=== PATIENT | female | born 1965 | race Two or more races ===

== ENCOUNTER 2019-04-26 14:18 | Emergency (ER) | payer OTHER ==
[~2019-04-26] VITALS: Ht 182.9 cm; Wt 83.9 kg
[2019-04-26] MEDS ORDERED: LISINOPRIL5 MG (15:12)
[2019-04-26] MEDS ORDERED: DICLOFENAC SODI75 MG PO (16:41)
== END 2019-04-26 17:20 | disposition home or self-care (01) ==
LOC: ER 14:18
DX: M25.562 Pain in left knee (principal)

== ENCOUNTER 2023-07-11 07:48 | Outpatient (CLI) | payer OTHER ==
[~2023-07-11 07:48] MED LIST: DICLOFENAC SODI75 MG PO; LISINOPRIL5 MG
== END 2023-07-11 07:52 | disposition home or self-care (01) ==
LOC: RAD 07:48 → MRI 07:48 → RAD 07:52
DX: M54.51 Vertebrogenic low back pain (principal); M54.50 Low back pain, unspecified; M25.562 Pain in left knee; M54.6 Pain in thoracic spine; M54.2 Cervicalgia
CPT/HCPCS: 72141; 72148; 73718

== ENCOUNTER 2023-08-27 10:33 | Outpatient (CLI) | payer OTHER | END 2023-08-27 10:41 | disposition home or self-care (01) | LOC: RAD 10:33 | PROVIDERS: ATTEND Family Medicine | DX: M25.512 Pain in left shoulder (principal); M25.511 Pain in right shoulder ==

== ENCOUNTER 2023-09-16 08:32 | Outpatient (CLI) | payer OTHER | END 2023-09-16 08:38 | disposition home or self-care (01) | LOC: RAD 08:32 | PROVIDERS: ATTEND Physical Medicine & Rehabilitation | DX: M17.12 Unilateral primary osteoarthritis, left knee (principal); M22.41 Chondromalacia patellae, right knee; M22.42 Chondromalacia patellae, left knee ==

== ENCOUNTER 2023-10-28 10:32 | Outpatient (CLI) | payer OTHER | END 2023-10-28 10:38 | disposition home or self-care (01) | LOC: RAD 10:32 | PROVIDERS: ATTEND Physical Medicine & Rehabilitation | DX: M77.31 Calcaneal spur, right foot (principal); M77.32 Calcaneal spur, left foot ==

== ENCOUNTER 2023-11-15 14:03 | Outpatient (CLI) | payer OTHER | END 2023-11-15 14:12 | disposition home or self-care (01) | LOC: EDSEX 14:03 → SONOGRAMA 14:03 | PROVIDERS: ATTEND Internal Medicine Hematology & Oncology | DX: D63.8 Anemia in other chronic diseases classified elsewhere (principal); D51.3 Other dietary vitamin B12 deficiency anemia; I10 Essential (primary) hypertension; E78.2 Mixed hyperlipidemia ==

== ENCOUNTER 2023-11-19 08:34 | Outpatient (CLI) | payer OTHER ==
[2023-11-19 09:31] LABS: HEMATOCRIT 38.8 % (39.0-48.0); HEMOGLOBIN 13.2 g/dL (13-16.00); MEAN CELL VOLUME 89.6 fL (80.0-100.00); MEAN CORPUSCULAR HEMOGLOBIN 30.4 pg (27.00-32.0); MEAN CORPUSCULAR HGB CONC 33.9 g/dl (32.0-36.0); PLATELET COUNT 201 K/uL (150-450); RED BLOOD COUNT 4.33 M/uL (4.00-6.00); RED CELL DISTRIBUTION WIDTH 14.1 % (11.5-14.5)
[2023-11-19 10:08] LABS: % SATURACION 27.2 % (20-50); ALBUMIN 4.2 gm/dL (3.4-5.0); BILIRUBIN TOTAL 0.64 mg/dL (0.3-1.2); CALCIUM 9.7 mg/dL (8.5-10.1); CREATININE SERUM 1.28 mg/dL (0.70-1.30); GFR 57.92; GLOBULINA 3.3 G/DL (2.4-3.5); POTASSIUM 3.88 mEq/L (3.5-5.1); T4 FREE 0.92 NG/ML (0.76-1.46); TOTAL PROTEIN 7.5 gm/dL (6.4-8.2); TSH 1.62 uIU/mL (0.358-3.74)
[2023-11-19 10:54] LABS: MANUAL PLATELET COUNT 224; PLATELET ESTIMATE NORMAL (NORMAL)
[2023-11-19 12:20] LABS: FOLIC ACID > 20.00 ng/ml (4.78-20); VITAMIN D3 25 HYDROXY 40.19 ng/ml (30-120)
[2023-11-20 11:12] LABS: ESTRADIOL SERUM 42.9 pg/mL (7.6-42.6)
[2023-11-20 13:07] LABS: hgb a 97.3 % (96.4-98.8); hgb a2 2.7 % (1.8-3.2); hgb f 0 % (0.0-2.0); hgb s 0 % (0.0)
[2023-11-21 20:43] LABS: PARIETAL CELL ANTIBODIES 1.5 Units (0.0-20.0); g6pd quant 250 (127-427); rbc 4.24 x10E6/uL (4.14-5.80)
== END 2023-11-19 08:35 | disposition home or self-care (01) ==
LOC: LAB 08:34
PROVIDERS: ATTEND Internal Medicine Hematology & Oncology
DX: D50.8 Other iron deficiency anemias (principal); R79.9 Abnormal finding of blood chemistry, unspecified; I10 Essential (primary) hypertension; R74.02 Elevation of levels of lactic acid dehydrogenase [LDH]; K76.89 Other specified diseases of liver; D63.8 Anemia in other chronic diseases classified elsewhere; D55.0 Anemia due to glucose-6-phosphate dehydrogenase [G6PD] deficiency; E55.9 Vitamin D deficiency, unspecified; D51.1 Vitamin B12 deficiency anemia due to selective vitamin B12 malabsorption with proteinuria; D51.0 Vitamin B12 deficiency anemia due to intrinsic factor deficiency; D63.1 Anemia in chronic kidney disease; E03.8 Other specified hypothyroidism; E06.3 Autoimmune thyroiditis; D51.3 Other dietary vitamin B12 deficiency anemia

== ENCOUNTER → 2024-05-15 08:08 | Outpatient (CLI) | payer OTHER ==
[2024-05-15 08:33] LABS: HEMATOCRIT 41.8 % (39.0-48.0); HEMOGLOBIN 14.5 g/dL (13-16.00); MEAN CELL VOLUME 89.5 fL (80.0-100.00); MEAN CORPUSCULAR HGB CONC 34.6 g/dl (32.0-36.0); PLATELET COUNT 233 K/uL (150-450); RED BLOOD COUNT 4.67 M/uL (4.00-6.00); RED CELL DISTRIBUTION WIDTH 14.2 % (11.5-14.5)
[2024-05-15 09:49] LABS: ALBUMIN 3.9 gm/dL (3.4-5.0); BILIRUBIN TOTAL 1.16 mg/dL (0.3-1.2); CHOL HDL RATIO 2.8 (0-5.0); CREATININE SERUM 1.34 mg/dL (0.70-1.30); GFR 54.75; GLOBULINA 3.2 G/DL (2.4-3.5); POTASSIUM 3.73 mEq/L (3.5-5.1); TOTAL PROTEIN 7.1 gm/dL (6.4-8.2); TSH 2.06 uIU/mL (0.358-3.74)
[2024-05-16 09:07] LABS: ESTRADIOL SERUM 82.2 pg/mL (7.6-42.6); LEUTEINIZING HORMONE < 0.3 mIU/mL (1.7-8.6); PROLACTIN 16.9 ng/mL (3.6-25.2)
== END | disposition home or self-care (01) ==
LOC: LAB 08:08
PROVIDERS: ATTEND Urology
DX: E29.1 Testicular hypofunction (principal); G47.30 Sleep apnea, unspecified; N52.02 Corporo-venous occlusive erectile dysfunction; Z12.5 Encounter for screening for malignant neoplasm of prostate; I10 Essential (primary) hypertension

== ENCOUNTER 2024-06-11 07:20 | Outpatient (CLI) | payer OTHER | END 2024-06-11 07:26 | disposition home or self-care (01) | LOC: MRI 07:20 | DX: S93.402A Sprain of unspecified ligament of left ankle, initial encounter (principal) | CPT/HCPCS: 73721 ==

== ENCOUNTER 2024-10-01 09:09 | Outpatient (CLI) | payer OTHER ==
[2024-10-01 09:50] LABS: HEMATOCRIT 37.7 % (39.0-48.0); HEMOGLOBIN 13.3 g/dL (13-16.00); MEAN CELL VOLUME 89.3 fL (80.0-100.00); MEAN CORPUSCULAR HEMOGLOBIN 31.4 pg (27.00-32.0); MEAN CORPUSCULAR HGB CONC 35.2 g/dl (32.0-36.0); PLATELET COUNT 197 K/uL (150-450); RED BLOOD COUNT 4.22 M/uL (4.00-6.00); RED CELL DISTRIBUTION WIDTH 14.5 % (11.5-14.5)
[2024-10-01 10:27] LABS: % SATURACION 36.3 % (20-50); BILIRUBIN TOTAL 0.82 mg/dL (0.3-1.2); CALCIUM 9.4 mg/dL (8.5-10.1); CREATININE SERUM 1.31 mg/dL (0.70-1.30); FERRITIN 104.4 NG/ML (26-388); GFR 56.2; GLOBULINA 3.1 G/DL (2.4-3.5); POTASSIUM 3.98 mEq/L (3.5-5.1); TOTAL PROTEIN 7.1 gm/dL (6.4-8.2)
[2024-10-01 13:07] LABS: FOLIC ACID > 20.00 ng/ml (4.78-20)
[2024-10-01 14:00] LABS: MANUAL PLATELET COUNT 334
[2024-10-01 14:01] LABS: PLATELET ESTIMATE NORMAL (NORMAL)
== END 2024-10-01 09:10 | disposition home or self-care (01) ==
LOC: LAB 09:09
PROVIDERS: ATTEND Internal Medicine Hematology & Oncology
DX: D50.8 Other iron deficiency anemias (principal); R79.9 Abnormal finding of blood chemistry, unspecified; I10 Essential (primary) hypertension; R74.02 Elevation of levels of lactic acid dehydrogenase [LDH]; K76.89 Other specified diseases of liver; D58.2 Other hemoglobinopathies; D63.8 Anemia in other chronic diseases classified elsewhere; D51.3 Other dietary vitamin B12 deficiency anemia; E78.2 Mixed hyperlipidemia

== ENCOUNTER → 2024-12-01 08:00 | Outpatient (CLI) | payer OTHER | END | disposition home or self-care (01) | LOC: LAB 08:00 | DX: E29.1 Testicular hypofunction (principal); Z98.52 Vasectomy status; Z12.5 Encounter for screening for malignant neoplasm of prostate; G47.30 Sleep apnea, unspecified; N52.02 Corporo-venous occlusive erectile dysfunction ==

== ENCOUNTER 2024-12-30 08:45 | Outpatient (CLI) | payer OTHER | END 2024-12-30 08:50 | disposition home or self-care (01) | LOC: MRI 08:45 | DX: M54.50 Low back pain, unspecified (principal); M54.16 Radiculopathy, lumbar region; M54.59 Other low back pain | CPT/HCPCS: 72148 ==

== ENCOUNTER 2025-01-06 13:46 | Outpatient (CLI) | payer OTHER | END 2025-01-06 13:50 | disposition home or self-care (01) | LOC: TOM 13:46 | PROVIDERS: ATTEND Internal Medicine Hematology & Oncology | DX: M54.2 Cervicalgia (principal); M54.12 Radiculopathy, cervical region; M47.892 Other spondylosis, cervical region; D58.2 Other hemoglobinopathies; D63.8 Anemia in other chronic diseases classified elsewhere; D51.3 Other dietary vitamin B12 deficiency anemia; I10 Essential (primary) hypertension; E78.2 Mixed hyperlipidemia; E04.2 Nontoxic multinodular goiter ==

== ENCOUNTER → 2025-01-07 07:46 | Outpatient (CLI) | payer OTHER ==
[2025-01-07 08:39] LABS: BASO % 0.6 % (0.1-1.2); EOS # 0.12 (0.04-0.54); EOS % 3.6 % (0.7-7.0); HEMATOCRIT 40.5 % (40.1-51.0); HEMOGLOBIN 13.8 g/dL (13.7-17.5); LYMPH % 36.3 % (19.3-53.1); MEAN CORPUSCULAR HEMOGLOBIN 30.5 pg (25.6-32.2); MONO # 0.27 (0.24-0.82); MONO % 8.2 % (4.7-12.5); NEUT % 51.3 % (34.0-71.1); PLATELET COUNT 235 K/uL (163-369); RED BLOOD COUNT 4.53 M/uL (4.63-6.08); RED CELL DISTRIBUTION WIDTH 13.2 % (11.6-14.4)
[2025-01-07 09:07] LABS: PH,URINE 5.5 (5.0-8.0); URINE APPEARANCE Clear; URINE BILIRRUBIN Negative (NEGATIVE); URINE BLOOD Negative; URINE COLOR Yellow; URINE KETONE Trace (NEGATIVE); URINE LEUKOCYTE Negative; URINE NITRATE Negative; URINE PROTEIN Trace (NEGATIVE)
[2025-01-07 09:10] LABS: INR 0.94; PROTHROMBIN TIME 10.3 SECONDS (9.0-11.5)
[2025-01-07 09:11] LABS: URINE BACTERIA 13.4 uL (0.0-1933); URINE EPITHELIAL CELLS 6.1 uL (0.0-38.8); URINE WBC 3.3 uL (0.0-23.2)
[2025-01-07 09:29] LABS: URINE GLUCOSE >=1000 MG/DL (NEGATIVE); URINE RBC 1.6 uL (0.0-20.8)
[2025-01-07 10:15] LABS: BILIRUBIN TOTAL 0.42 mg/dL (0.3-1.2); CALCIUM 9.1 mg/dL (8.5-10.1); CHOL HDL RATIO 2.4 (0-5.0); CREATININE SERUM 1.28 mg/dL (0.70-1.30); FREE TRIODOTIRONINE 3.1 pg/ml (2.18-3.98); GFR 57.72; GLOBULINA 3.2 G/DL (2.4-3.5); POTASSIUM 4.2 mEq/L (3.5-5.1); PROSTATIC SPECIFIC ANTIGEN 0.833 NG/ML (0.010-4.00); T4 TOTAL 5.94 UG/DL (4.5-12.1); TOTAL PROTEIN 7.2 gm/dL (6.4-8.2); TSH 2.41 uIU/mL (0.358-3.74)
[2025-01-07 10:43] LABS: FOLIC ACID > 20.00 ng/ml (4.78-20); VITAMIN D3 25 HYDROXY 43.73 ng/ml (30-120)
[2025-01-09 05:07] LABS: ESTRADIOL SERUM 57.7 pg/mL (7.6-42.6); PROLACTIN 11.3 ng/mL (3.6-25.2)
[2025-01-09 15:12] LABS: ERYTHROPOIETIN 18.9 mIU/mL (2.6-18.5)
== END | disposition home or self-care (01) ==
LOC: LAB 07:46
PROVIDERS: ATTEND Internal Medicine Hematology & Oncology
DX: M85.80 Other specified disorders of bone density and structure, unspecified site (principal); E78.5 Hyperlipidemia, unspecified; G47.00 Insomnia, unspecified; M25.50 Pain in unspecified joint; R79.1 Abnormal coagulation profile; N40.0 Benign prostatic hyperplasia without lower urinary tract symptoms; D50.8 Other iron deficiency anemias; R79.9 Abnormal finding of blood chemistry, unspecified; I10 Essential (primary) hypertension; R74.02 Elevation of levels of lactic acid dehydrogenase [LDH]; K76.89 Other specified diseases of liver; D51.8 Other vitamin B12 deficiency anemias; D63.1 Anemia in chronic kidney disease; R97.0 Elevated carcinoembryonic antigen [CEA]; R97.8 Other abnormal tumor markers; R97.20 Elevated prostate specific antigen [PSA]; N39.0 Urinary tract infection, site not specified; R80.9 Proteinuria, unspecified; R94.4 Abnormal results of kidney function studies; D58.2 Other hemoglobinopathies; D63.8 Anemia in other chronic diseases classified elsewhere; D51.3 Other dietary vitamin B12 deficiency anemia; E78.2 Mixed hyperlipidemia